=== PATIENT | female | born 1965 | race Caucasian/White ===

== ENCOUNTER → 2021-09-01 | Outpatient (CLI) | payer BC ==
[~2021-09-01] MED LIST: ASPI81CH PO; ASPI81EC PO; CALCIUM; CHOL10002; CHOL10002 PO; Calcium 250+D1 EACH PO; Flagyl500 MG PO; LEVO750 PO; LISI5 PO; MAGNESIUM; METF500 PO; METF500C PO; Percocet 5-3251 EACH PO; VENOFER PO; VERA180ERB PO; VERAPAMIL SR180 MG PO; Zofran Odt4 MG SL; [UNRECOGNIZED DRUG - OTHER]
== END | disposition home or self-care (01) ==
LOC: LAB SHORT 07:51 → PLD 07:51
DX: B35.1 Tinea unguium (principal); L60.2 Onychogryphosis
CPT/HCPCS: 88305; 88312

== ENCOUNTER → 2023-05-01 | Outpatient (CLI) | payer BC | LOC: LAB SHORT 16:30 → LAB 16:30 → LAB SHORT 05-02 10:36 | DX: B35.1 Tinea unguium (principal) | CPT/HCPCS: 87102 ==

== ENCOUNTER → 2023-10-08 | Outpatient (CLI) | payer OTHER ==
[2023-10-08 20:14] LABS: Bacterial Vaginosis PCR Negative (NEGATIVE); Candida Group, PCR NOT DETECTED (NOT DETECT)
[2023-10-08 20:17] LABS: Candida glabrata-krusei, PCR DETECTED (NOT DETECT)
== END ==
LOC: LAB 17:00 → LAB SHORT 17:00
PROVIDERS: Internal Medicine
DX: N76.0 Acute vaginitis (principal)
CPT/HCPCS: 87481; 87661; 87801

== ENCOUNTER 2024-08-25 06:57 | Day surgery (SDC) | payer OTHER ==
[~2024-08-25] VITALS: Ht 162.6 cm; Wt 86.2 kg
[2024-08-25] VITALS (16 sets, daily range): BP systolic 97–147; BP diastolic 53–105
[~2024-08-25 06:57] MED LIST changes: +LEVOTHYROXINE50 MC9 PO; +Lactated Ringer's 1,000 ML IV SCH; +RYBELSUS7 MG PO
[2024-08-25] MEDS ORDERED: Lovastatin20 MG PO (07:08)
[2024-08-25] MEDS ORDERED: propofoL 40 ML IV ONE (07:24)
--- NOTE | 2024-08-25 07:30 | NUR ---
08/25/24 0730 Ted Armas CONFIRMED AND REVIEWED H&P, MEDCICATIONS, ALLERGIES, MEDICAL HISTORY, RESPIRATORY HISTORY, VITAL SIGNS, 3-LEAD EKG, CONSENTS, AND PHYSICIAN ORDERS. PATIENT CONFIRMS NPO STATUS AND AGREES WITH SCHEDULED PROCEDURE. MONITOR INTACT WITH CONTINUOUS PULSE OXIMETRY, CAPNOGRAPHY, 3-LEAD EKG, INTERMITTENT BP. SUPPLEMENTAL O2 TO BE TITRATED THROUGHOUT PROCEDURE TO MAINTAIN O2 SATURATION ABOVE 90%. PATIENT DETERMINED TO BE ASA APPROPRIATE FOR PROPOFOL SEDATION PRIOR TO START OF PROCEDURE BY DR. FINNEGAN
--- NOTE | 2024-08-25 07:34 | NUR ---
Ambulatory in Day Surgery. History, Chart, Medications and Allergies reviewed before start of procedure. Patient States Post-Procedure ride home has been arranged. Patient confirms NPO status and agrees with scheduled surgery. Pre-Op teaching done. Pt verbalizes understanding.
--- NOTE | 2024-08-25 08:27 | NUR ---
Patient up to Ambulate independently. Gait steady. Discharge instructions reviewed with patient. Patient verbalizes understanding. Copy given to patient to take home, [facility]. Patient States Post-Procedure ride home has been arranged. Discharged via wheelchair to private car for ride home. PT REPORTS TOLERATING PO. DENIES PAIN,SOB,CP. REPORTS READY TO GO HOME. PER DR KAIN WATT/5 YEARS.
== END 2024-08-25 08:27 | disposition home or self-care (01) ==
LOC: ORSCMMR 06:57 → ORD 07:30 → ORSCMMR 07:30
PROVIDERS: Internal Medicine Gastroenterology
PROC: 0DBN8ZX Excision of Sigmoid Colon, Via Natural or Artificial Opening Endoscopic, Diagnostic (ICD-10-PCS; principal; 2024-08-25 07:30)
DX: Z12.11 Encounter for screening for malignant neoplasm of colon (principal); Z86.0100 Personal history of colon polyps, unspecified; K63.5 Polyp of colon; K64.8 Other hemorrhoids; E11.9 Type 2 diabetes mellitus without complications; I10 Essential (primary) hypertension; E03.9 Hypothyroidism, unspecified; Z79.82 Long term (current) use of aspirin; Z79.84 Long term (current) use of oral hypoglycemic drugs; Z79.899 Other long term (current) drug therapy
CPT/HCPCS: 82947; J2704; J7120